=== PATIENT | female | born 1975 | race Caucasian/White ===

== ENCOUNTER → 2016-10-30 | Outpatient (CLI) | payer OTHER ==
[~2016-10-30] MED LIST: AMLO2.5T PO; ASPI-391 PO; BENZ1CAP90 PO; CALC-20 PO; CHOL1TAB42 PO; ESCI10TA17 PO; IPRA1AER2 INH; LEVO112T4 PO; MAGN200T3 PO; METO25TA3 PO; ONDA4TAB4 SL; OXYC1TAB3 PO; PANT40TA PO; PEDICHW53 PO; PRED20TA PO; PRVIN525 NEB; SUMA100T15 PO; SYMIN/8045 INH; TRIA37.5 PO
[2016-10-30 14:55] LABS: BASO % 0.3 %; BASO ABS # 0.02 K/uL (0-0.2); COMPLETE YES; HEMATOCRIT 40.6 % (37-47); IG% 0.2 %; LYMPH % 27.3 %; LYMPH ABS # 1.74 K/uL (1.2-3.4); MEAN CELL VOLUME 89.4 fL (80-100); MEAN CORPUSCULAR HGB CONC 31.3 g/dl (32-36); MONO % 4.9 %; NEUT % 40.3 %; PLATELET COUNT 213 K/uL (130-400); RED BLOOD COUNT 4.54 M/uL (4.2-5.4); WHITE BLOOD COUNT 6.37 K/uL (4.8-10.8)
[2016-10-30 15:11] LABS: ALT/SGPT 71 U/L (12-78); AST/SGOT 31 U/L (15-37); BLOOD UREA NITROGEN 13 mg/dl (7-18); BUN/CREATININE RATIO 18.9 (10-20); CARBON DIOXIDE 30 mmol/L (21-32); CHLORIDE 106 mmol/L (98-107); CREATININE 0.68 mg/dl (0.60-1.20); GLUCOSE 86 mg/dl (70-99); POTASSIUM 3.9 mmol/L (3.5-5.1); SODIUM 140 mmol/L (136-145)
[2016-10-30 15:14] LABS: ALB/GLOB RATIO 1.2 (0.9-2); ALKALINE PHOSPHATASE 90 U/L (45-117)
[2016-11-05 18:21] LABS: ALTERNARIA CLASS 0; ALTERNARIA IGE <0.10 KU/L; ASPERG FUMIG CLASS 0; ASPERG FUMIG IGE <0.10 KU/L; BAHIA GRASS ASM CLASS 0; BAHIA GRASS IGE <0.10 KU/L; BERMUDA GRASS CLASS 0; BERMUDA GRASS IGE <0.10 KU/L; BIRCH CLASS 0; BLACK LOCUST CLASS 0; BLACK LOCUST IGE <0.35 kU/L (<0.35); CAT DANDER CLASS 0; CLADOSPORIUM HER CLASS 0; CLADOSPORIUM HER IGE <0.10 KU/L; COCKROACH CLASS 0; D. FARINAE CLASS 0; D. FARINAE IGE <0.10 KU/L; D. PTERONYSSINUS CLASS 0; D. PTERONYSSINUS IGE <0.10 KU/L; DOG DANDER CLASS 0; ELM CLASS 0; ENGLISH PLAN CLASS 0; ENGLISH PLAN IGE <0.10 KU/L; JOHNSON CLASS 0; JOHNSON IGE <0.10 KU/L; JUNE (KENTUCKY BLUE) CLASS 0; JUNE IGE <0.10 KU/L; MAPLE (BOX ELDER) IGE <0.10 KU/L; MAPLE CLASS 0; MOUNTAIN CEDAR ASM CLASS 0; MOUNTAIN CEDAR IGE <0.10 KU/L; MUCOR CLASS 0; MUCOR IGE <0.10 KU/L; NETTLE CLASS 0; NETTLE IGE <0.10 KU/L; PENIC NOTATUM CLASS 0; PENIC NOTATUM IGE <0.10 KU/L; ROUGH PIGWEED CLASS 0; ROUGH PIGWEED IGE <0.10 KU/L; SHORT RAGWEED CLASS 0; SHORT RAGWEED IGE <0.10 KU/L; STEMPHY BOTRY CLASS 0; STEMPHY BOTRY IGE <0.10 KU/L; WHITE HICKORY ASM CLASS 0; WHITE HICKORY IGE <0.10 kU/L (<0.35); WHITE MULBERRY CLASS 0; WHITE MULBERRY IGE <0.10 KU/L
== END | disposition home or self-care (01) ==
LOC: C.LAB1850 13:00
PROVIDERS: ATTEND Internal Medicine Pulmonary Disease
DX: L50.9 Urticaria, unspecified (principal); L50.1 Idiopathic urticaria; L50.3 Dermatographic urticaria

== ENCOUNTER 2017-02-06 07:45 | Emergency (ER) | payer OTHER ==
[~2017-02-06] VITALS: Ht 152.4 cm; Wt 85.1 kg
[~2017-02-06 07:45] MED LIST changes: -AMLO2.5T PO; -ASPI-391 PO; -BENZ1CAP90 PO; -CALC-20 PO; -CHOL1TAB42 PO; -ESCI10TA17 PO; -IPRA1AER2 INH; -LEVO112T4 PO; -MAGN200T3 PO; -METO25TA3 PO; -PANT40TA PO; -PRED20TA PO; -PRVIN525 NEB; -SUMA100T15 PO; -SYMIN/8045 INH; -TRIA37.5 PO
[2017-02-06] MEDS ORDERED: ALBUT/IPRATROP 3MG/0.5MG NEB 3 ML VIAL INH STA ×2 (08:02→08:53)
[2017-02-06 08:18] VITALS: O2SAT 100
[2017-02-06 08:20] LABS: BASO % 0.1 %; BASO ABS # 0.01 K/uL (0-0.2); COMPLETE YES; EOS % 1.3 %; HEMATOCRIT 41.8 % (37-47); IG% 0.3 %; LYMPH ABS # 0.83 K/uL (1.2-3.4); MEAN CELL VOLUME 88.9 fL (80-100); MEAN CORPUSCULAR HEMOGLOBIN 27.7 pg (25-34); MEAN CORPUSCULAR HGB CONC 31.1 g/dl (32-36); MEAN PLATELET VOLUME 10.2 fL (7.4-10.4); MONO % 8.2 %; NEUT % 78.1 %; PLATELET COUNT 214 K/uL (130-400); WHITE BLOOD COUNT 6.93 K/uL (4.8-10.8)
[2017-02-06] MEDS ORDERED: TRIA37.5 PO (08:33)
[2017-02-06] MEDS ORDERED: PANT40TA PO (08:33)
[2017-02-06] MEDS ORDERED: CALC-20 PO (08:33)
[2017-02-06] MEDS ORDERED: LEVO112T4 PO (08:33)
[2017-02-06] MEDS ORDERED: SYMIN/8045 INH (08:33)
[2017-02-06] MEDS ORDERED: ASPI-391 PO (08:33)
[2017-02-06] MEDS ORDERED: ESCI10TA17 PO (08:33)
[2017-02-06] MEDS ORDERED: AMLO2.5T PO (08:33)
[2017-02-06 08:34] LABS: ALT/SGPT 38 U/L (12-78); BLOOD UREA NITROGEN 13 mg/dl (7-18); BUN/CREATININE RATIO 16.4 (10-20); CALCIUM 8.6 mg/dl (8.5-10.1); CARBON DIOXIDE 26 mmol/L (21-32); CHLORIDE 108 mmol/L (98-107); CREATININE 0.81 mg/dl (0.60-1.20); GLUCOSE 121 mg/dl (70-99); POTASSIUM 3.5 mmol/L (3.5-5.1); SODIUM 140 mmol/L (136-145)
[2017-02-06 08:39] LABS: ALB/GLOB RATIO 1.1 (0.9-2); ALKALINE PHOSPHATASE 84 U/L (45-117); AST/SGOT 16 U/L (15-37)
[2017-02-06] MEDS ORDERED: PRED20TA PO ×2 (08:41→09:30)
[2017-02-06] MEDS ORDERED: SUMA100T15 PO (08:41)
[2017-02-06] MEDS ORDERED: METO25TA3 PO (08:41)
[2017-02-06] MEDS ORDERED: MAGN200T3 PO (08:41)
[2017-02-06] MEDS ORDERED: CHOL1TAB42 PO (08:41)
[2017-02-06] MEDS ORDERED: PRVIN525 NEB (08:41)
[2017-02-06 08:45] VITALS: TEMP 36.4; Ht 152.4 cm; Wt 85.1 kg
--- NOTE | 2017-02-06 08:48 | DIAGNOSTIC IMAGING REPORT ---
CHEST 2 VIEWS ROUTINE HISTORY: dyspnea, wheezing COMPARISON: Chest 08/27/2013. FINDINGS: The lungs are clear. Cardiac silhouette is normal in size. No pleural effusions. No pneumothorax. IMPRESSION: No acute process. Electronically signed by: Ozzie Ruiz M.D. 02/06/2017 8:46 AM Dictated Date/Time: 02/06/2017 8:42 AM
[2017-02-06] MEDS ORDERED: METHYLPREDNISOLONE 125 MG VIAL IV STA (08:53)
--- NOTE | 2017-02-06 09:00 | EMERGENCY ROOM VISIT NOTE ---
History First contact with patient: 07:56 Chief Complaint: RESPIRATORY PROBLEMS Stated Complaint: CHEST PAINS - SHORTNESS OF BREATH (CARDIAC HX) Nursing Triage Summary: I have had a cough, I feel like I cant catch my breath. symptoms started about 330 this morning. I have a heart condition as well no chest pain at this time History of Present Illness The patient is a 42 year old female who presents to the Emergency Room with complaints of difficulty breathing and cough. The patient states she awoke at approximately 3:30 this morning with difficulty breathing. The patient states over the past 3 months, she has been having a cough on and off. The patient was seen by her physician, who did order a chest x-ray which she states was fine. The patient states she has been slightly nauseated and had a headache, but denies fever, chills, vomiting, or a history of lung problems including asthma or COPD. The patient states she has not recently been ill. She denies chest pain, palpitations, or other associated symptoms. The patient states she does feel that she has wheezing, and she feels that her lungs are "tight". The patient does have small children at home, and does work in a daycare. She denies recent contact with known ill people, however she states it is very possible due to her job. The patient does have PFO. Review of Systems A complete 10 point review of systems was reviewed with the patient with pertinent positives and negatives as per history of present illness. All else were negative. Past Medical/Surgical History Medical Problems: (1) ACUTE APPENDICITIS NOS (2) Appendectomy (3) Mitral valve regurgitation (4) TUBAL LIGATION STATUS Surgical Problems: (1) H/O knee surgery Family History Diabetes mellitus FH: cancer FH: heart disease Hypertension Social History Smoking Status: Never Smoker Smokeless Tobacco Use: No Alcohol Use: none Drug Use: none Marital Status: Housing Status: lives with family Occupation Status: unemployed Current/Historical Medications Scheduled Cholecalciferol (Vitamin D), 5,000 UNITS PO DAILY Ipratropium-Albuterol (Combivent Respimat), 1 PUFFS INH Q4-6H Magnesium (Magnesium), 200 MG PO DAILY Metoprolol Succinate (Toprol Xl), 25 MG PO DAILY Prednisone (Prednisone), 0 PO DAILY Scheduled PRN Albuterol Sulf (Albuterol Sulfate), 2.5 MG NEB UD PRN for SOB/Wheezing Benzonatate (Tessalon Perles), 200 MG PO TID PRN for Cough Prednisone (Prednisone), 20-40 MG PO UD PRN for Itching Sumatriptan Succinate (Imitrex), 100 MG PO UD PRN for Migraine Physical Exam Vital Signs Date Time Temp Pulse Resp B/P (MAP) Pulse Ox O2 Delivery O2 Flow Rate FiO2 02/06/17 09:50 121 20 137/82 93 02/06/17 09:10 93 20 130/86 100 Nebulizer 02/06/17 08:45 36.4 89 18 133/87 100 Room Air 02/06/17 08:18 100 02/06/17 07:59 95 Room Air 02/06/17 07:59 89 02/06/17 07:50 99 18 133/87 97 Room Air Physical Exam VITALS: Vitals are noted on the nurse's note and reviewed by myself. Vital signs stable. GENERAL: This is a 42-year-old female, in no acute distress, nondiaphoretic, well-developed well-nourished. SKIN: The skin was without rashes, erythema, edema, or bruising. There is no tenting of the skin. Capillary reflex less than 2 seconds. HEAD: Normocephalic atraumatic. EARS: External auditory canals clear, tympanic membranes pearly mahmood without erythema or effusion bilaterally. EYES: Pupils equal round and reactive to light and accommodation. Conjunctivae without injection, sclerae without icterus. Extraocular movements intact. NOSE: Patent, turbinates without inflammation or discharge. No sinus tenderness. MOUTH: Mucous membranes moist. Tonsils are not enlarged. Pharynx without erythema or exudate. Uvula midline. Airway patent. Tongue does not deviate. NECK: Supple without nuchal rigidity. No lymphadenopathy. No thyromegaly. Cervical spine is nontender. No JVD. HEART: Regular rate and rhythm without murmurs gallops or rubs. LUNGS: Wheezing noted throughout all lung shay, worse on exhalation. No Rales or rhonchi noted on auscultation. No dullness to percussion. No retractions or accessory muscle use. MUSCULOSKELETAL: No muscle atrophy, erythema, or edema noted. Full range of motion without joint tenderness in all extremities. No tenderness to palpation. Normal gait. Strength 5/5 throughout. NEURO: Patient was alert and oriented to person place and time. Normal sensation to light and sharp touch. Deep tendon reflexes 2+ throughout. No focal neurological deficits. Medical Decision & Procedures ER Provider Diagnostic Interpretation: CXR: FINDINGS: The lungs are clear. Cardiac silhouette is normal in size. No pleural effusions. No pneumothorax. IMPRESSION: No acute process. LABS: CBC was without leukocytosis, anemia, thrombocytopenia. CMP showed no electrolyte abnormalities, liver and renal function normal. Troponin was negative. CK was negative. Laboratory Results 02/06/17 08:00 Red Blood Count 4.70, Mean Corpuscular Volume 88.9, Mean Corpuscular Hemoglobin 27.7, Mean Corpuscular Hemoglobin Concent 31.1, Mean Platelet Volume 10.2, Neutrophils (%) (Auto) 78.1, Lymphocytes (%) (Auto) 12.0, Monocytes (%) (Auto) 8.2, Eosinophils (%) (Auto) 1.3, Basophils (%) (Auto) 0.1, Neutrophils # (Auto) 5.41, Lymphocytes # (Auto) 0.83, Monocytes # (Auto) 0.57, Eosinophils # (Auto) 0.09, Basophils # (Auto) 0.01 02/06/17 08:00 Test 02/06/17 08:00 02/06/17 08:26 White Blood Count 6.93 K/uL (4.8-10.8) Red Blood Count 4.70 M/uL (4.2-5.4) Hemoglobin 13.0 g/dL (12.0-16.0) Hematocrit 41.8 % (37-47) Mean Corpuscular Volume 88.9 fL (80-100) Mean Corpuscular Hemoglobin 27.7 pg (25-34) Mean Corpuscular Hemoglobin Concent 31.1 g/dl (32-36) Platelet Count 214 K/uL (130-400) Mean Platelet Volume 10.2 fL (7.4-10.4) Neutrophils (%) (Auto) 78.1 % Lymphocytes (%) (Auto) 12.0 % Monocytes (%) (Auto) 8.2 % Eosinophils (%) (Auto) 1.3 % Basophils (%) (Auto) 0.1 % Neutrophils # (Auto) 5.41 K/uL (1.4-6.5) Lymphocytes # (Auto) 0.83 K/uL (1.2-3.4) Monocytes # (Auto) 0.57 K/uL (0.11-0.59) Eosinophils # (Auto) 0.09 K/uL (0-0.5) Basophils # (Auto) 0.01 K/uL (0-0.2) RDW Standard Deviation 46.3 fL (36.4-46.3) RDW Coefficient of Variation 14.2 % (11.5-14.5) Immature Granulocyte % (Auto) 0.3 % Immature Granulocyte # (Auto) 0.02 K/uL (0.00-0.02) Anion Gap 6.0 mmol/L (3-11) Est Creatinine Clear Calc Drug Dose 89.4 ml/min Estimated GFR () 105.3 Estimated GFR (Non- 90.8 BUN/Creatinine Ratio 16.4 (10-20) Calcium Level 8.6 mg/dl (8.5-10.1) Total Bilirubin 0.7 mg/dl (0.2-1) Aspartate Amino Transf (AST/SGOT) 16 U/L (15-37) Alanine Aminotransferase (ALT/SGPT) 38 U/L (12-78) Alkaline Phosphatase 84 U/L (45-117) Total Creatine Kinase 76 U/L (26-192) Creatine Kinase MB 0.6 ng/ml (0.5-3.6) Troponin I < 0.015 ng/ml (0-0.045) Total Protein 7.4 gm/dl (6.4-8.2) Albumin 3.9 gm/dl (3.4-5.0) Globulin 3.5 gm/dl (2.5-4.0) Albumin/Globulin Ratio 1.1 (0.9-2) Creatine Kinase MB Ratio (0-3.0) Medications Administered Medications (Trade) Dose Ordered Sig/Shahana Route Start Time Stop Time Status Last Admin Dose Admin Albuterol/ Ipratropium (Duoneb) 3 ml NOW STAT INH 02/06/17 08:02 02/06/17 08:03 DC 02/06/17 08:17 3 ML Methylprednisolone Sodium Succinate (Solu-Medrol IV) 125 mg NOW STAT IV 02/06/17 08:53 02/06/17 08:55 DC 8/24/17 09:08 125 MG Albuterol/ Ipratropium (Duoneb) 3 ml NOW STAT INH 02/06/17 08:53 02/06/17 08:55 DC 02/06/17 09:08 3 ML Medical Decision The patient was seen and evaluated as above. She was immediately given a DuoNeb treatment. The patient did note significant improvement in her symptoms with this medication. On reevaluation, the patient continued to have very diffuse, significant wheezing, however this was improved from her previous examination. The patient was given a repeat DuoNeb treatment, and 125 mg Solu-Medrol via IV. On reevaluation, the patient states she continues to feel significantly better, her chest feels significantly less tight, and she has been wheezing much less. The patient's lungs do reveal wheezing, however this has improved since her previous examination. I discussed discharge instructions with the patient, given her lack of lung problems including asthma or COPD, I suspect viral etiology of illness. Patient will be placed on prednisone and given medication for her coughing, as well as a Combivent inhaler for bronchitis. Discharge instructions were discussed with the patient about that, and she was discharged home in good condition. Throughout the course of the patient's care, I did consider etiologies including : bronchitis, pneumonia, acute coronary syndrome, heart disease, failure, upper respiratory infection, acute tracheobronchitis, malignancy, and others. Medication Reconcilliation Current Medication List: was personally reviewed by me Blood Pressure Screening Patient's blood pressure: Normal blood pressure Impression Primary Impression: Acute bronchitis Departure Information Dispostion Home / Self-Care Condition GOOD Prescriptions Ipratropium-Albuterol (COMBIVENT RESPIMAT) 1 Aer Aer 1 PUFFS INH Q4-6H, #1 INHALER Prov: Rita Barboza PA-C 02/06/17 Benzonatate (Tessalon Perles) 200 Mg Cap 200 MG PO TID Y for Cough, #30 CAP Prov: Rita Barboza PA-C 02/06/17 Prednisone (Prednisone) 20 Mg Tab 0 PO DAILY, #18 TAB 3 DAILY FOR 3 DAYS, THEN 2 DAILY FOR 3 DAYS, THEN 1 DAILY FOR 3 DAYS. Prov: Rita Barboza PA-C 02/06/17 Referrals Rodriguez Sutherland M.D. (PCP) Forms WORK / SCHOOL INSTRUCTIONS, HOME CARE DOCUMENTATION FORM, IMPORTANT VISIT INFORMATION Patient Instructions Bronchitis Acute, My [facility] Additional Instructions You were seen and treated in the emergency department today for acute bronchitis. Chest x-ray did rule out pneumonia. You have been prescribed prednisone. This is a steroid which will help decrease your inflammation and help with breathing. Take the medicine as prescribed. Take the ENTIRE 9 day course of the steroids. You may take benzonatate, 1 capsule 3 times per day as needed for coughing. Use the Combivent inhaler every 4-6 hours over the next 3-4 days. Then use it as needed for breathing difficulty. You may also use OTC cold medication. If you began experiencing worsening breathing difficulty, cough, chest congestion, or other concerning symptoms, return to the emergency department immediately for further evaluation. Please follow up in 1-2 days with your PCP for recheck of your lungs. Due to your symptoms for the past 3 months, I do recommend that you see a embroiderer. Please discuss with your PCP and appropriate embroiderer for you. Problem Qualifiers Primary Impression: Acute bronchitis Bronchitis organism: unspecified organism Qualified Codes: J20.9 - Acute bronchitis, unspecified
[2017-02-06] MEDS ORDERED: BENZ1CAP90 PO (09:30)
[2017-02-06] MEDS ORDERED: IPRA1AER2 INH (09:30)
[2017-02-06 09:50] VITALS: BP 137/82; PULSE 121; O2SAT 93
== END 2017-02-06 09:51 | disposition home or self-care (01) ==
LOC: C.EDB 07:46
DX: J20.9 Acute bronchitis, unspecified (principal); Q21.1 Atrial septal defect; I34.0 Nonrheumatic mitral (valve) insufficiency; Z98.51 Tubal ligation status; Z83.3 Family history of diabetes mellitus; Z82.49 Family history of ischemic heart disease and other diseases of the circulatory system; Z79.899 Other long term (current) drug therapy

== ENCOUNTER 2021-12-02 14:43 | Observation (INO) ==
[2021-12-02] MEDS ORDERED: diphenhydrAMINE 50 MG/ML VIAL IV STA (15:34)
[2021-12-02] MEDS ORDERED: KETOROLAC TROMETHAMINE 15 MG/ML VIAL IV ONE (15:34)
[2021-12-02] MEDS ORDERED: PROCHLORPERAZINE 2 ML IV ONE (15:34)
[2021-12-02] MEDS ORDERED: SODIUM CHLORIDE 0.9% 1000ML 1,000 ML IV ONE (15:35)
--- NOTE | 2021-12-02 15:39 | Emergency Department Note ---
Impression & Plan Sepsis, Pyelonephritis ED Provider Note NAME: AMY LI AGE: 46 SEX: F : 1975 ARRIVES VIA: Walk-In INFORMANT: Patient ED PROVIDER(S): Albaro Hdez DO CHIEF COMPLAINT: COVID + and migraine HPI: Patient is a 46-year-old female with past medical history of migraines, PFO, atrial septal aneurysm, symptomatic PVCs presents to the ER for headache. Patient notes her symptoms started on Friday. She is COVID-positive. Denies any belly pain or vomiting but admits to nausea. Headache is diffuse throughout the whole head. She describes as a pounding sharp stabbing headache. No neck pain. No fevers. This is her second round of COVID. She admits to a history of VT but denies any ICD placement. ROS: See above HPI for pertinent positives & negatives. A total of 10 systems reviewed and were otherwise negative. PAST MEDICAL HISTORY:See Below PAST SURGICAL HISTORY:See Below FAMILY HISTORY:See Below SOCIAL HISTORY:See Below HOME MEDICATIONS:See Below ALLERGIES:See Below VITALS:See Below PHYSICAL EXAMINATION: GENERAL: Sitting up in bed, alert, well appearing, well nourished, no distress, non-toxic EYE EXAM: normal conjunctiva. PERRL and EOM's intact. OROPHARYNX: no exudate, no erythema, lips, buccal mucosa, and tongue normal and mucous membranes are moist NECK: supple, no nuchal rigidity, no adenopathy, non-tender LUNGS: Clear to auscultation. Normal chest wall mechanics HEART: no murmurs, S1 normal and S2 normal ABDOMEN: abdomen soft, non-tender, normo-active bowel sounds, no masses, no rebound or guarding. BACK: Back is symmetrical on inspection and there is no deformity, no midline tenderness, no CVA tenderness. SKIN: no rashes and no bruising UPPER EXTREMITIES: upper extremities are grossly normal. LOWER EXTREMITIES: No pitting edema. NEURO EXAM: Normal sensorium, cranial nerves II-XII intact, normal speech, no weakness of arms, no weakness of legs. No drift. Finger to nose intact. Gross sensation intact. MEDICAL DECISION MAKING: Patient is a 46-year-old female who presents the ER with a past medical history of migraines, PFO, atrial septal aneurysm and symptomatic PVCs. She notes that she has a history of VT however review of the chart she followed with Dr. Zarco and had PVCs. Discussed this with her at bedside and she believes that it was likely PVCs instead of VT. She has a stress test which was negative in 2020. He was established with records obtained. Labs show mild leukopenia 4000. No significant anemia. BMP with mild hypokalemia 3.2. LFTs bilirubin and troponin was negative. UA was contaminated. Patient is COVID-positive. Chest x-ray was unremarkable. It was negative. EKG showed new T wave inversion in counseling patient was discussed with the hospitalist in light of the new T wave changes, chest pain/palpitations. Triage Nursing notes reviewed. Limited review of prior medical records performed Vital Signs: reviewed and remarkable for no significant abnormalities Differential diagnosis: Differential Diagnosis includes but is not limited to headache, tension headache, cluster headache, migraine, subarachnoid hemorrhage, meningitis, mass, central venous thrombus, concussion, trauma and epidural/subdural hemorrhage. ER treatment provided: See below Diagnostics interpreted by me: ECG: Sinus rhythm rate of [address] depressions in the inferior leads T wave inversion V1 through V3 ST depressions in V3 QTC 471 T wave inversions are new from previous. Cardiac Monitoring: An order was placed for continuous cardiac monitoring. The monitor shows a rate of 80 with sinus rhythm. Laboratory studies: As stated above and show below. Imaging studies: Head was negative Portable AP upright 1 view of the chest was unremarkable Consultation(s): Discussed with Chandni from [facility] service Procedures: none Critical Care: None Past Med/Surg History Medical History Mitral valve regurgitation Surgical History H/O knee surgery Hx of appendectomy Tubal ligation status Family History Other Cancer Heart disease Hypertension Social History Smoking Status: Never smoker Preferred Language: Sami Feels Safe at Home: Yes Allergies Allergies Allergy/AdvReac Type Severity Reaction Status Date / Time No Known Allergies Allergy Verified 12/02/21 19:40 Home Meds Home Medications Medication Instructions Recorded Confirmed mometasone-formoterol HFA 200 2 puff INHALATION BID 04/12/20 12/02/21 mcg-5 mcg/actuation aerosol inhaler (Dulera) multivit-iron 18 mg-folic acid 400 1 tab PO DAILY 04/12/20 12/02/21 mcg-calcium 500 mg-minerals tablet (Women's One Daily) acetaminophen 500 mg tablet 1,000 mg PO Q6H PRN 12/02/21 12/02/21 (Tylenol Extra Strength) ibuprofen 200 mg tablet 400 mg PO Q6H PRN 12/02/21 12/02/21 Results & Data (ED) Vital Signs Vital Signs - 24 hr 12/02/21 14:51 12/02/21 16:49 12/02/21 18:36 Temperature 36.3 C L Temperature Source Temporal Artery Scan Pulse Rate 97 H Pulse Rate [Right Finger] 83 68 Pulse Rhythm Regular Pulse Rhythm [Right Finger] Regular Pulse Strength Normal Pulse Strength [Right Finger] Normal Respiratory Rate 20 18 16 Respiratory Effort / Characteristics Non-Labored Spontaneous Non-Labored Spontaneous Non-Labored Spontaneous Respiratory Depth Normal Normal Normal Blood Pressure 133/89 Blood Pressure [Left Arm] 119/76 131/83 Blood Pressure Mean 103 Blood Pressure Mean [Left Arm] 90 99 Blood Pressure Position Sitting Blood Pressure Position [Left Arm] Lying Pulse Oximetry 99 100 100 Oxygen Delivery Method Room Air Room Air Room Air Sepsis Recent Fever Within 48 Hours No Sepsis New/Unexplained Change in Mental Status No Sepsis Action Taken by Nursing No Action Required 12/02/21 18:37 12/02/21 19:29 Temperature Temperature Source Pulse Rate 68 Pulse Rate [Right Finger] 88 Pulse Rhythm Regular Pulse Rhythm [Right Finger] Pulse Strength Pulse Strength [Right Finger] Respiratory Rate 17 18 Respiratory Effort / Characteristics Respiratory Depth Blood Pressure Blood Pressure [Left Arm] 135/83 Blood Pressure Mean Blood Pressure Mean [Left Arm] 100 Blood Pressure Position Blood Pressure Position [Left Arm] Sitting Pulse Oximetry 100 100 Oxygen Delivery Method Room Air Sepsis Recent Fever Within 48 Hours Sepsis New/Unexplained Change in Mental Status Sepsis Action Taken by Nursing Laboratory Data Result diagrams: 12/02/21 16:00 12/02/21 17:35 Lab Results 12/02/21 12/02/21 12/02/21 Range/Units 16:00 16:00 16:00 WBC 4.28 L (4.8-10.8) K/uL RBC 4.74 (4.2-5.4) M/uL Hgb 13.5 (12.0-16.0) g/dL Hct 41.3 (37-47) % MCV 87.1 (80-100) fL MCH 28.5 (25-34) pg MCHC 32.7 (32-36) g/dL RDW Std Deviation 48.0 H (36.4-46.3) fL RDW Coeff of Sveta 14.9 H (11.5-14.5) % Plt Count 219 (130-400) K/uL MPV 11.0 H (7.4-10.4) fL Immature Gran % (Auto) 0.2 % Neut % (Auto) 55.7 % Lymph % (Auto) 31.3 % [place] % (Auto) 12.1 % Eos % (Auto) 0.5 % Baso % (Auto) 0.2 % Neut # (Auto) 2.38 (1.4-6.5) K/uL Lymph # (Auto) 1.34 (1.2-3.4) K/uL [place] # (Auto) 0.52 (0.11-0.59) K/uL Eos # (Auto) 0.02 (0-0.5) K/uL Baso # (Auto) 0.01 (0-0.2) K/uL Immature Gran # (Auto) 0.01 (0.00-0.02) K/uL Sodium 139 (136-145) mmol/L Potassium (3.5-5.1) mmol/L Chloride 104 (98-107) mmol/L Carbon Dioxide 27 (21-32) mmol/L Anion Gap 8 (3-11) BUN 11 (6-23) mg/dl Creatinine 0.70 (0.6-1.2) mg/dl Est Cr Clr Drug Dosing 94.9 ml/min Est GFR ( Amer) 122.1 ml/min Est GFR (Non-Af Amer) 105.4 ml/min BUN/Creatinine Ratio 15.7 (10-20) Glucose 83 (70-99(Fasting)) mg/dl Calcium 9.2 (8.5-10.1) mg/dl Total Bilirubin 1.0 (0.2-1.0) mg/dl AST (13-39) U/L ALT 32 (7-52) U/L Alkaline Phosphatase 50 (34-104) U/L Troponin I High Sens 5.7 (0-14) pg/ml Total Protein 7.6 (6.0-8.3) gm/dl Albumin 4.5 (3.4-5.0) gm/dl Globulin 3.1 (2.5-4.0) gm/dl Albumin/Globulin Ratio 1.5 (0.9-2) Urine Color [place] Urine Appearance Cloudy A (Clear) Urine pH 6.0 (4.5-7.5) Ur Specific [place] 1.027 (1.000-1.030) Urine Protein 2+ H (Negative) Urine Glucose (UA) Negative (Negative) Urine Ketones 3+ H (Negative) Urine Blood 3+ H (Negative) Urine Nitrite Negative (Negative) Urine Bilirubin 1+ H (Negative) Urine Urobilinogen Negative (Negative) Ur Leukocyte Esterase 1+ H (Negative) Urine WBC (Auto) 5-10 H (0-5) /hpf Urine RBC (Auto) >30 H (0-4) /hpf U Hyaline Cast (Auto) 1-5 (0-5) /lpf U Epithel Cells (Auto) >30 H (0-5) /lpf Urine Bacteria (Auto) 1+ H (Negative) SARS-CoV-2, RNA, NAAT (NEGATIVE) 12/02/21 12/02/21 12/02/21 Range/Units 17:35 19:33 Unknown WBC (4.8-10.8) K/uL RBC (4.2-5.4) M/uL Hgb (12.0-16.0) g/dL Hct (37-47) % MCV (80-100) fL MCH (25-34) pg MCHC (32-36) g/dL RDW Std Deviation (36.4-46.3) fL RDW Coeff of Sveta (11.5-14.5) % Plt Count (130-400) K/uL MPV (7.4-10.4) fL Immature Gran % (Auto) % Neut % (Auto) % Lymph % (Auto) % [place] % (Auto) % Eos % (Auto) % Baso % (Auto) % Neut # (Auto) (1.4-6.5) K/uL Lymph # (Auto) (1.2-3.4) K/uL [place] # (Auto) (0.11-0.59) K/uL Eos # (Auto) (0-0.5) K/uL Baso # (Auto) (0-0.2) K/uL Immature Gran # (Auto) (0.00-0.02) K/uL Sodium (136-145) mmol/L Potassium 3.2 L (3.5-5.1) mmol/L Chloride (98-107) mmol/L Carbon Dioxide (21-32) mmol/L Anion Gap (3-11) BUN (6-23) mg/dl Creatinine (0.6-1.2) mg/dl Est Cr Clr Drug Dosing ml/min Est GFR ( Amer) ml/min Est GFR (Non-Af Amer) ml/min BUN/Creatinine Ratio (10-20) Glucose (70-99(Fasting)) mg/dl Calcium (8.5-10.1) mg/dl Total Bilirubin (0.2-1.0) mg/dl AST 16 (13-39) U/L ALT (7-52) U/L Alkaline Phosphatase (34-104) U/L Troponin I High Sens 6.3 (0-14) pg/ml Total Protein (6.0-8.3) gm/dl Albumin (3.4-5.0) gm/dl Globulin (2.5-4.0) gm/dl Albumin/Globulin Ratio (0.9-2) Urine Color Urine Appearance (Clear) Urine pH (4.5-7.5) Ur Specific [place] (1.000-1.030) Urine Protein (Negative) Urine Glucose (UA) (Negative) Urine Ketones (Negative) Urine Blood (Negative) Urine Nitrite (Negative) Urine Bilirubin (Negative) Urine Urobilinogen (Negative) Ur Leukocyte Esterase (Negative) Urine WBC (Auto) (0-5) /hpf Urine RBC (Auto) (0-4) /hpf U Hyaline Cast (Auto) (0-5) /lpf U Epithel Cells (Auto) (0-5) /lpf Urine Bacteria (Auto) (Negative) SARS-CoV-2, RNA, NAAT POSITIVE A* (NEGATIVE) Administered Medications Discontinued Medications Diphenhydramine HCl (Diphenhydramine 50 Mg/Ml Vial) 50 mg IV NOW STA Stop: 12/02/21 15:35 Last Admin: 12/02/21 16:12 Dose: 50 mg Documented by: [id number] Prochlorperazine (Compazine) 2 mls @ 1 mls/min IV ONE ONE Stop: 12/02/21 15:35 Last Admin: 12/02/21 16:11 Dose: 1 mls/min Documented by: [id number] Sodium Chloride (Nss 1000ml) 1,000 mls @ 999 mls/hr IV .Q1H1M ONE Stop: 12/02/21 16:35 Last Infusion: 12/02/21 17:27 Dose: 0 mls/hr Documented by: [id number] Admin: 12/02/21 16:11 Dose: 999 mls/hr Documented by: [id number] Ketorolac Tromethamine (Ketorolac Tromethamine 15 Mg/Ml Vial) 15 mg IV NOW ONE Stop: 12/02/21 15:35 Last Admin: 12/02/21 16:11 Dose: 15 mg Documented by: [id number] Ondansetron HCl (Ondansetron Inj 2 Mg/Ml 2 Ml Vial) 4 mg IV NOW STA Stop: 12/02/21 16:08 Last Admin: 12/02/21 16:11 Dose: 4 mg Documented by: [id number] Imaging Data Radiologist's Impression: Head CT 12/02/21 15:33 CT head/brain wo con CLINICAL HISTORY: marmolejo COMPARISON STUDY: 04/12/2020 CT DOSE: 537.48 mGy.cm TECHNIQUE: Standard CT of the Brain was performed without IV contrast. A dose lowering technique was utilized adhering to the principles of ALARA. FINDINGS: Extraaxial space: There is no evidence for subdural hematoma. There are no extra-axial fluid collections. Ventricles and cisterns: The ventricles are normal in size and configuration. There is no evidence for midline shift or mass effect. Parenchyma: There is no subarachnoid or intraparenchymal hemorrhage. There is no evidence for an acute infarct or cerebral edema. There is homogeneous attenuation of the brain parenchyma. There are no gross mass lesions. Osseous structures: There is no evidence for an acute fracture. The visualized paranasal sinuses are clear. The mastoid air cells are clear bilaterally. Soft tissues: There is no evidence for focal soft tissue swelling. IMPRESSION: 1. No acute intracerebral pathology. ACT 112: Negative or not required by law. Electronically signed by: Jose Shepherd M.D. 12/02/2021 5:04 PM Chest X-Ray 12/02/21 15:35 XR chest 1V portable CLINICAL HISTORY: cough. COMPARISON STUDY: 04/12/2020 TECHNIQUE: 1 view of the chest FINDINGS: Single frontal view of the chest demonstrates the cardiomediastinal silhouette to be within normal limits. The lungs are clear of alveolar opacities. There is no evidence for pleural effusion. There is no evidence for vascular congestion. There is no acute osseous pathology. IMPRESSION: 1. No acute cardiopulmonary disease. ACT 112: Negative or not required by law. Electronically signed by: Jose Shepherd M.D. 12/02/2021 5:03 PM Discharge Plan Visit Data Chief Complaint: Headache Stated Complaint: HEADACHE, HEART PALPITATION, COVID + ED Provider: Albaro Hdez Discharge Problem: Sepsis, Pyelonephritis Forms Stand Alone Forms: [facility] [employer] Prescriptions Prescriptions: No Action Dulera 200-5 mcg/actuation HFA aerosol inhaler 2 puff INHALATION BID RF: 0 Women's One Daily 18 mg iron-400 mcg-500 mg Ca Tablet 1 tab PO DAILY RF: 0 acetaminophen [Tylenol Extra Strength] 500 mg Tablet 1,000 mg PO Q6H PRN (Reason: headache/pain) RF: 0 ibuprofen 200 mg Tablet 400 mg PO Q6H PRN (Reason: HEADACHE/PAIN) RF: 0 Referrals Referrals: Daniel Acosta MD [Primary Care Provider] - Discharge Problem: Sepsis Qualifiers: Sepsis type: sepsis due to unspecified organism Sepsis acute organ dysfunction status: unspecified Qualified Code(s): A41.9 - Sepsis, unspecified organism
[2021-12-02] MEDS ORDERED: ONDANSETRON INJ 2 MG/ML 2 ML VIAL IV STA (16:07)
[2021-12-02 16:27] LABS: Appearance Urine Cloudy (Clear); Bacteria Urine Automated 1+ (Negative); Blood Urine 3+ (Negative); Color Urine Orange; Epithelial Cell Urine Auto >30 /lpf (0-5); Glucose Urine UA Negative (Negative); Ketones Urine 3+ (Negative); Leukocyte Esterase Urine 1+ (Negative); Nitrite Urine Negative (Negative); Protein Urine 2+ (Negative); RBC Urine Automated >30 /hpf (0-4); Specific Gravity Urine 1.027 (1.000-1.030); Urobilinogen Urine Negative (Negative)
[2021-12-02 16:28] LABS: Basophils # (auto) 0.01 K/uL (0-0.2); Basophils % (auto) 0.2 %; Eosinophils # (auto) 0.02 K/uL (0-0.5); Eosinophils % (auto) 0.5 %; Hematocrit (blood only) 41.3 % (37-47); Hemoglobin 13.5 g/dL (12.0-16.0); Immature Granulocytes # (auto) 0.01 K/uL (0.00-0.02); Immature Granulocytes % (auto) 0.2 %; Lymphocytes # (auto) 1.34 K/uL (1.2-3.4); Lymphocytes % (auto) 31.3 %; Mean Corpuscular Hemoglobin 28.5 pg (25-34); Mean Corpuscular Hgb Conc 32.7 g/dL (32-36); Mean Corpuscular Volume 87.1 fL (80-100); Monocytes # (auto) 0.52 K/uL (0.11-0.59); Monocytes % (auto) 12.1 %; Neutrophils # (auto) 2.38 K/uL (1.4-6.5); Neutrophils % (auto) 55.7 %; Platelet Count 219 K/uL (130-400); RDW Coefficient of Variation 14.9 % (11.5-14.5); Red Blood Count 4.74 M/uL (4.2-5.4); White Blood Count 4.28 K/uL (4.8-10.8)
[2021-12-02 16:34] LABS: Bilirubin Urine 1+ (Negative)
[2021-12-02 16:58] LABS: Albumin Globulin Ratio 1.5 (0.9-2); Albumin Level 4.5 gm/dl (3.4-5.0); BUN Creatinine Ratio 15.7 (10-20); Calcium 9.2 mg/dl (8.5-10.1); Creatinine Clr Calc Pharmacy 94.9 ml/min; Est GFR (African American) 122.1 ml/min; Est GFR (Non-African American) 105.4 ml/min; Globulin 3.1 gm/dl (2.5-4.0); Total Protein 7.6 gm/dl (6.0-8.3); Troponin I High Sensitivity 5.7 pg/ml (0-14)
--- NOTE | 2021-12-02 17:04 | XRay Report ---
XR chest 1V portable CLINICAL HISTORY: cough. COMPARISON STUDY: 04/12/2020 TECHNIQUE: 1 view of the chest FINDINGS: Single frontal view of the chest demonstrates the cardiomediastinal silhouette to be within normal li mits. The lungs are clear of alveolar opacities. There is no evidence for pleural effusion. There is no evidence for vascular congestion. There is no acute osseous pathology. IMPRESSION: 1. No acute cardiopulmonary disease. ACT 112: Negative or not required by law. Electronically signed by: Jose Shepherd M.D. 12/02/2021 5:03 PM
--- NOTE | 2021-12-02 17:05 | CT Scan Report ---
CT head/brain wo con CLINICAL HISTORY: marmolejo COMPARISON STUDY: 04/12/2020 CT DOSE: 537.48 mGy.cm TECHNIQUE: Standard CT of the Brain was performed without IV contrast. A dose lowering technique was utilized adhering to the principles of ALARA. FINDINGS: Extraaxial space: There is no evidence for subdural hematoma. There are no extra-axial fluid collecti ons. Ventricles and cisterns: The ventricles are normal in size and configuration. There is no evidence fo r midline shift or mass effect. Parenchyma: There is no subarachnoid or intraparenchymal hemorrhage. There is no evidence for an acut e infarct or cerebral edema. There is homogeneous attenuation of the brain parenchyma. There are no g ross mass lesions. Osseous structures: There is no evidence for an acute fracture. The visualized paranasal sinuses are clear. The mastoid air cells are clear bilaterally. Soft tissues: There is no evidence for focal soft tissue swelling. IMPRESSION: 1. No acute intracerebral pathology. ACT 112: Negative or not required by law. Electronically signed by: Jose Shepherd M.D. 12/02/2021 5:04 PM
[2021-12-02 18:19] LABS: Potassium 3.2 mmol/L (3.5-5.1)
--- NOTE | 2021-12-02 19:16 | History & Physical Report ---
Date of Service December 02, 2021 Assessment & Plan (1) Chest pain: Plan: - Admit to tele for observation for r/o - Trend cardiac biomarkers, initial set was negative, will check again now, then Q6H x 2 more sets - EKG reviewed as above showing ST wave inversions in the anterior leads, concern for possible ACS with chest pain complaints/radiation/palpitations - Check 2 D echo -Previously had nonstress test as an outpatient with cardiology, follows with Sharon Ayala, last seen 6 to 7 months ago -Consult cardiology (2) Palpitations: Plan: - as above (3) COVID-19: Plan: - COVID-19 positive since home test done on 11/29/2021, patient has been quarantining since then, not vaccinated - CXR reviewed and is negative for acute findings currently - O2 sats 100% on room air - WBC 4.28 -Without respiratory symptoms and no hypoxia she does not meet the qualifications for remdesivir or dexamethasone. Steroids would worsen headache. - Will need to quarantine for 5 days total, recommend vaccination 90 days after testing positive (4) Headache: Plan: - Avoid NSAIDs in the setting of possible ACS as above, can use tylenol for headache as needed DVT ppx: - teds, scds, Lovenox subcu CODE: Full code Dispo: From home, likely to remain in the hospital x 1-2 days History of Present Illness Chief Complaint: headache Primary Care Provider: Daniel Acosta MD This is a 46-year-old female with PMHx of headache, mitral valve regurgitation, and prolapsed uterus who presents with acute onset of chest pain, headache when her symptoms began on . Pt took a covid home test which resulted positive for COVID. She is NOT vaccinated. 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 Symptoms progressed to worsening nasal symptoms, fever of 102.3, and migraine which has been ongoing since Friday. Intermittently has been taking tylenol and motrin for pain relief and fever. The reason she presents to the hospital is due to having intermittent episodes of chest palpitations going on from 10-30 seconds with pain, it moves from the center of chest to the left side, and if it gets worse it goes up into her left neck, denies radiation to the back. This has occurred whenever she is sitting still, mostly notices it when she is sleeping, and states it happens 2-3 times per night for the past 3 nights consecutively. Pt follows with cardiology, typically with Stacey Ferrara and last saw her 6-7 months ago and had nonstress test which was normal. She had been going to cardiology for palpitations and was diagnosed with symptomatic PVCs. Other symptoms include poor po intake. Pt is able to keep some small amount of fluids down but overall oral intake is limited due to nausea. She has a hx of asthma, but denies shortness of breath, cough, no loss of taste or smell. At baseline she occasionally uses an inhaler but has not needed it recently. Bowels are moving and peeing ok. She denies dysuria, hematuria, increased frequency but does not she has a prolapsed uterus and is working with Dr. Jackson with emerging technologies director as an outpatient and considering surgical fixation. Allergies Allergy/AdvReac Type Severity Reaction Status Date / Time No Known Allergies Allergy Verified 12/02/21 19:40 Home Medications Medication Instructions Recorded Confirmed Type mometasone-formoterol HFA 200 2 puff INHALATION BID 04/12/20 12/02/21 History mcg-5 mcg/actuation aerosol inhaler (Dulera) multivit-iron 18 mg-folic acid 400 1 tab PO DAILY 04/12/20 12/02/21 History mcg-calcium 500 mg-minerals tablet (Women's One Daily) acetaminophen 500 mg tablet 1,000 mg PO Q6H PRN 12/02/21 12/02/21 History (Tylenol Extra Strength) ibuprofen 200 mg tablet 400 mg PO Q6H PRN 12/02/21 12/02/21 History Past Med/Surg History Medical History Mitral valve regurgitation Surgical History H/O knee surgery Hx of appendectomy Tubal ligation status Family History Other Cancer Heart disease Hypertension Social History Smoking Status: Never smoker Second Hand Exposure: No; Do You Dip or Chew Tobacco: No; Tobacco Cessation Education Requested by Patient: No Hx Alcohol Use: Yes Alcohol type: wine Hx Substance Use: No Preferred Language: Vietnamese Communication Ability: Effective Chief Media Officer Required: No Beliefs That Will Affect Care: None Current Living Situation: Spouse and Family Other Information That Helps Us Care for You: No Feels Safe at Home: Yes Safety Concerns: Feels Safe At This Time Assistive Devices: None Review of Systems Review of Systems: Constitutional: As per HPI, today no fever, sweats or chills Eyes: No diplopia, no worsening or blurred vision ENT: normal hearing, no trouble swallowing Respiratory: No cough, sputum, dyspnea at rest or on exertion Cardiovascular: Jennyfer per HPI. + chest pain, + palpitations Abdomen: No pain, nausea, vomiting, diarrhea or constipation Musculoskeletal: No joint pain, calf pain, swelling Neurologic: No weakness, numbness/tingling, or balance problems Psychiatric: No anxiety or depression Skin: No rash or itch Physical Exam Physical Exam: Please refer to attending addendum as I did not see the patient in person due to being COVID-19 positive Results & Data Results & Data ([facility]) Vital Signs (Past 12 Hours) Vital Signs Temp Pulse Pulse Resp BP BP Pulse Ox 12/02/21 18:37 68 17 100 12/02/21 18:36 68 16 131/83 100 12/02/21 16:49 83 18 119/76 100 12/02/21 14:51 36.3 C L 97 H 20 133/89 99 Laboratory Results 12/02/21 16:00 Urine Culture - Pending Urine,Clean Catch 12/02/21 12/02/21 12/02/21 Unknown 17:35 16:00 WBC RBC Hgb Hct MCV MCH MCHC RDW Std Deviation RDW Coeff of Sveta Plt Count MPV Immature Gran % (Auto) Neut % (Auto) Lymph % (Auto) [place] % (Auto) Eos % (Auto) Baso % (Auto) Neut # (Auto) Lymph # (Auto) [place] # (Auto) Eos # (Auto) Baso # (Auto) Immature Gran # (Auto) Sodium Potassium 3.2 L Chloride Carbon Dioxide Anion Gap BUN Creatinine Est Cr Clr Drug Dosing Est GFR ( Amer) Est GFR (Non-Af Amer) BUN/Creatinine Ratio Glucose Calcium Total Bilirubin AST 16 ALT Alkaline Phosphatase Troponin I High Sens Total Protein Albumin Globulin Albumin/Globulin Ratio Urine Color [place] Urine Appearance Cloudy A Urine pH 6.0 Ur Specific [place] 1.027 Urine Protein 2+ H Urine Glucose (UA) Negative Urine Ketones 3+ H Urine Blood 3+ H Urine Nitrite Negative Urine Bilirubin 1+ H Urine Urobilinogen Negative Ur Leukocyte Esterase 1+ H Urine WBC (Auto) 5-10 H Urine RBC (Auto) >30 H U Hyaline Cast (Auto) 1-5 U Epithel Cells (Auto) >30 H Urine Bacteria (Auto) 1+ H SARS-CoV-2, RNA, NAAT POSITIVE A* 12/02/21 12/02/21 16:00 16:00 WBC 4.28 L RBC 4.74 Hgb 13.5 Hct 41.3 MCV 87.1 MCH 28.5 MCHC 32.7 RDW Std Deviation 48.0 H RDW Coeff of Sveta 14.9 H Plt Count 219 MPV 11.0 H Immature Gran % (Auto) 0.2 Neut % (Auto) 55.7 Lymph % (Auto) 31.3 [place] % (Auto) 12.1 Eos % (Auto) 0.5 Baso % (Auto) 0.2 Neut # (Auto) 2.38 Lymph # (Auto) 1.34 [place] # (Auto) 0.52 Eos # (Auto) 0.02 Baso # (Auto) 0.01 Immature Gran # (Auto) 0.01 Sodium 139 Potassium Chloride 104 Carbon Dioxide 27 Anion Gap 8 BUN 11 Creatinine 0.70 Est Cr Clr Drug Dosing 94.9 Est GFR ( Amer) 122.1 Est GFR (Non-Af Amer) 105.4 BUN/Creatinine Ratio 15.7 Glucose 83 Calcium 9.2 Total Bilirubin 1.0 AST ALT 32 Alkaline Phosphatase 50 Troponin I High Sens 5.7 Total Protein 7.6 Albumin 4.5 Globulin 3.1 Albumin/Globulin Ratio 1.5 Urine Color Urine Appearance Urine pH Ur Specific [place] Urine Protein Urine Glucose (UA) Urine Ketones Urine Blood Urine Nitrite Urine Bilirubin Urine Urobilinogen Ur Leukocyte Esterase Urine WBC (Auto) Urine RBC (Auto) U Hyaline Cast (Auto) U Epithel Cells (Auto) Urine Bacteria (Auto) SARS-CoV-2, RNA, NAAT Diagnostic Findings Head CT 12/02/21 15:33 CT head/brain wo con CLINICAL HISTORY: marmolejo COMPARISON STUDY: 04/12/2020 CT DOSE: 537.48 mGy.cm TECHNIQUE: Standard CT of the Brain was performed without IV contrast. A dose lowering technique was utilized adhering to the principles of ALARA. FINDINGS: Extraaxial space: There is no evidence for subdural hematoma. There are no extra-axial fluid collections. Ventricles and cisterns: The ventricles are normal in size and configuration. There is no evidence for midline shift or mass effect. Parenchyma: There is no subarachnoid or intraparenchymal hemorrhage. There is no evidence for an acute infarct or cerebral edema. There is homogeneous attenuation of the brain parenchyma. There are no gross mass lesions. Osseous structures: There is no evidence for an acute fracture. The visualized paranasal sinuses are clear. The mastoid air cells are clear bilaterally. Soft tissues: There is no evidence for focal soft tissue swelling. IMPRESSION: 1. No acute intracerebral pathology. ACT 112: Negative or not required by law. Electronically signed by: Jose Shepherd M.D. 12/02/2021 5:04 PM Chest X-Ray 12/02/21 15:35 XR chest 1V portable CLINICAL HISTORY: cough. COMPARISON STUDY: 04/12/2020 TECHNIQUE: 1 view of the chest FINDINGS: Single frontal view of the chest demonstrates the cardiomediastinal silhouette to be within normal limits. The lungs are clear of alveolar opacities. There is no evidence for pleural effusion. There is no evidence for vascular congestion. There is no acute osseous pathology. IMPRESSION: 1. No acute cardiopulmonary disease. ACT 112: Negative or not required by law. Electronically signed by: Jose Shepherd M.D. 12/02/2021 5:03 PM ECG Additional Comments: 02-DEC-2021 18:00:56 [facility]-EDSTAT ROUTINE RETRIEVAL Normal sinus rhythm T wave abnormality, consider anterior ischemia Prolonged QT Abnormal ECG When compared with ECG of 12-APR-2020 15:07, No significant change was found 25mm/s10mm/[id number] 241CID: 16Referred by: REFERRED SELF Unconfirmed Vent. rate 78 BPM ND interval 136 ms QRS duration 88 ms QT/QTc 414/471 ms P-R-T axes 55 53 12 Supervising Physician Co-Signing Physician Notes Care coordinated with Nanci Horton PA-C. Agree with able note. Patient seen and examined. Vital signs reviewed. Physical exam: General exam: Alert and oriented. Not in acute distress. HEENT: Atraumatic, JOHN, Oral mucosa moist NECK; No neck masses, Supple CVS: S1 and S2 heard, regular rate and rhythm, no murmurs. RS: Clear to auscultation, no wheezing or crackles. ABD: Soft, bowel sounds present, nontender, no distention. LENS FINISHER: CN 2-12 Grossly intact, Speech clear, No facial droop, Nonfocal. EXT: No edema, no erythema. Labs: Reviewed. Assessment and plan: 46F with hx of Asthma presents with Covid symptoms since last and she tested at home positive for COVID on Friday. Started with stuff nose but since friday having severe headaches. She is also having intermittet chest pain and palpitations which prompted her to come to ER. Currently resting comfortably and hemodynamically stable. Denies any cough or fevers or nausea or abdominal pain. Had some diarrhea yesterday.Ally is not vaccinated. Works in Day care. She is interested in vaccination now. COVID having headaches no sob or cough afebrile saturating fine unvaccinated will monitor for now Chest pain and palpitations currently ok initial workup for chest pain ok serial CE and cardio consult Monitor in tele. Asthma stable on home inhalers. Other diagnosis and plan of care as per Possible UTI will follow cultures starting on mamadou cole. .
[2021-12-02] MEDS ORDERED: ONDANSETRON INJ 2 MG/ML 2 ML VIAL IV PRN (22:40)
[2021-12-02] MEDS ORDERED: ACETAMINOPHEN 325 MG TAB PO PRN (22:40)
[2021-12-02] MEDS ORDERED: POTASSIUM CHLORIDE CRTAB 20 MEQ TABCR PO STA (22:40)
[2021-12-02] MEDS ORDERED: ALBUTEROL HFA 8 GM INHALER INH PRN (22:56)
[2021-12-02] MEDS ORDERED: ENOXAPARIN INJ 40 MG/0.4 ML SYR SQ SCH (23:00)
[2021-12-02] MEDS: ALBUTEROL HFA 8 GM INHALER INH SCH (23:05)
[2021-12-03 01:39] LABS: Hematocrit (blood only) 37.8 % (37-47); Hemoglobin 12.1 g/dL (12.0-16.0); Mean Corpuscular Hemoglobin 27.3 pg (25-34); Mean Corpuscular Volume 85.3 fL (80-100); Mean Platelet Volume 10.5 fL (7.4-10.4); Platelet Count 172 K/uL (130-400); RDW Coefficient of Variation 14.8 % (11.5-14.5); RDW Standard Deviation 46.3 fL (36.4-46.3); Red Blood Count 4.43 M/uL (4.2-5.4); White Blood Count 3.74 K/uL (4.8-10.8)
[2021-12-03 02:00] LABS: Albumin Globulin Ratio 1.5 (0.9-2); Albumin Level 3.7 gm/dl (3.4-5.0); BUN Creatinine Ratio 15.4 (10-20); Bilirubin,Total 0.7 mg/dl (0.2-1.0); Calcium 8.4 mg/dl (8.5-10.1); Creatinine Clr Calc Pharmacy 102.8 ml/min; Est GFR (African American) 125.1 ml/min; Globulin 2.4 gm/dl (2.5-4.0); Magnesium 1.9 mg/dl (1.7-2.4); Potassium 3.6 mmol/L (3.5-5.1); Total Protein 6.1 gm/dl (6.0-8.3)
[2021-12-03] MEDS ORDERED: cefTRIAXone SODIUM 1,000 MG in DEXTROSE 5% 50 ML IV SCH (07:00)
[2021-12-03] MEDS: ALBUTEROL HFA 8 GM INHALER INH SCH (07:11)
--- NOTE | 2021-12-03 09:07 | Cardiology Consultation ---
Date of Consultation December 03, 2021 Assessment & Plan (1) Chest pain: (2) Palpitations: (3) COVID-19: (4) Prolonged QT interval: Atypical chest pain symptoms and palpitations in the setting Covid 19 + status. Symptoms have since resolved since admission No concerning findings on Tele over night QTC prolonged- likely in the setting of Zofran and Compazine use. Avoid qtc prolonging medications during stay and at discharge. Repeat EKG at noon to reassess QTc Will plan on following up as an outpatient- in the absence of symptoms recommendations for an echocardiogram as an outpatient. Case discussed with Dr. Brito, will follow. History of Present Illness Reason for Consultation: Chest pain, palpitations Requesting Physician: [facility] Attending Physician: Karon Aldridge DO History of Present Illness To limit the contact and spread of the COVID-19 virus chart/telemetry reviewed and telephone consultation was utilized. Patient primarily follows with MARYELLEN Ayala as an outpatient. Last seen 1 year ago 09/2020. 46-year-old female presents to the emergency department for complaints of chest pain. Symptoms started , 11/29. Symptoms are also accompanied by headache and URI symptoms. She then spiked a fever of 102.3 and took a home COVID test which was positive. Chest pain/palpitations are described as starting in the central to left-side of her chest, symptoms sometimes occur in the neck. No radiation to the back. Symptoms last about 10 to 30 seconds. Nonexertional. Mostly happens when sitting or wakes her from sleeping. Overall lab work has been unremarkable including negative HS troponin x4. Potassium was mildly low when she was supplemented. Chest x-ray showed no acute cardiopulmonary disease EKG 12/02: Normal sinus rhythm, T wave abnormality in anterior leads, 78 bpm. QTc 471 ms EKG 12/03: Normal sinus rhythm, T wave abnormality in septal anterior leads, 85 bpm. QTc prolonged at 516 ms Tele: SR 60-70s. Per the patient she has been feeling much better compared to yesterday. She has not had any chest pain or further episodes of tachy palpitations. Her migraine has resolved and she now only feels a slight head ache at times. No shortness of breath. No lower extremity edema. Denies any further nausea- last dose of antiemetics, specifically Zofran was yesterday. She voices that she is eager to go home. Past medical history: History of palpitations, secondary to symptomatic PACs and PVCs as well as increased cardiac awareness History of 1 single episode of nonsustained VT, 6 beats on outpatient media monitor History of PFO/ASD aneurysm with [id number] shunt Negative SONIA 10/25/2020 Allergies Allergy/AdvReac Type Severity Reaction Status Date / Time No Known Allergies Allergy Verified 12/02/21 19:40 Home Medications Medication Instructions Recorded Confirmed Type mometasone-formoterol HFA 200 2 puff INHALATION BID 04/12/20 12/02/21 History mcg-5 mcg/actuation aerosol inhaler (Dulera) multivit-iron 18 mg-folic acid 400 1 tab PO DAILY 04/12/20 12/02/21 History mcg-calcium 500 mg-minerals tablet (Women's One Daily) acetaminophen 500 mg tablet 1,000 mg PO Q6H PRN 12/02/21 12/02/21 History (Tylenol Extra Strength) ibuprofen 200 mg tablet 400 mg PO Q6H PRN 12/02/21 12/02/21 History Patient History Medical History Mitral valve regurgitation Surgical History H/O knee surgery Hx of appendectomy Tubal ligation status Family History Other Cancer Heart disease Hypertension Social History Smoking Status: Never smoker Second Hand Exposure: No; Do You Dip or Chew Tobacco: No; Tobacco Cessation Education Requested by Patient: No Hx Alcohol Use: Yes Alcohol type: wine Hx Substance Use: No Preferred Language: Yakut Communication Ability: Effective Solar Photovoltaic Crew Lead Required: No Beliefs That Will Affect Care: None Current Living Situation: Spouse and Family Other Information That Helps Us Care for You: No Feels Safe at Home: Yes Safety Concerns: Feels Safe At This Time Assistive Devices: None Review of Systems Review of Systems: All systems reviewed & are unremarkable except as noted in HPI & below Physical Exam Physical Exam: Deferred due to COVID 19 status Results & Data ([facility]) Vital Signs (Past 12 Hours) Vital Signs Temp Pulse Pulse Resp BP BP Pulse Ox 12/03/21 07:55 36.7 C 84 20 120/80 98 12/03/21 07:32 75 12/03/21 07:15 84 16 99 12/03/21 03:00 36.7 C 82 15 109/72 97 12/03/21 00:00 12/02/21 23:08 65 18 99 12/02/21 22:45 36.6 C 66 90 14 137/91 99 12/02/21 22:03 65 18 115/65 98 12/02/21 21:10 66 18 131/84 100 Pulse Ox 12/03/21 07:55 12/03/21 07:32 12/03/21 07:15 12/03/21 03:00 12/03/21 00:00 99 12/02/21 23:08 12/02/21 22:45 12/02/21 22:03 12/02/21 21:10 Laboratory Results Cardiac Enzymes 12/02/21 12/02/21 12/02/21 Range/Units 16:00 17:35 19:33 AST 16 (13-39) U/L Troponin I High Sens 5.7 6.3 (0-14) pg/ml 12/03/21 12/03/21 12/03/21 Range/Units 01:27 01:28 07:12 AST 15 (13-39) U/L Troponin I High Sens 5.3 4.3 (0-14) pg/ml CBC 12/02/21 12/03/21 Range/Units 16:00 01:27 WBC 4.28 L 3.74 L (4.8-10.8) K/uL RBC 4.74 4.43 (4.2-5.4) M/uL Hgb 13.5 12.1 (12.0-16.0) g/dL Hct 41.3 37.8 (37-47) % Plt Count 219 172 (130-400) K/uL Neut # (Auto) 2.38 (1.4-6.5) K/uL Lymph # (Auto) 1.34 (1.2-3.4) K/uL [place] # (Auto) 0.52 (0.11-0.59) K/uL Eos # (Auto) 0.02 (0-0.5) K/uL Baso # (Auto) 0.01 (0-0.2) K/uL Comprehensive Metabolic Panel 12/02/21 12/02/21 12/03/21 Range/Units 16:00 17:35 01:28 Sodium 139 140 (136-145) mmol/L Potassium 3.2 L 3.6 (3.5-5.1) mmol/L Chloride 104 109 H (98-107) mmol/L Carbon Dioxide 27 26 (21-32) mmol/L BUN 11 10 (6-23) mg/dl Creatinine 0.70 0.65 (0.6-1.2) mg/dl Glucose 83 81 (70-99(Fasting)) mg/dl Calcium 9.2 8.4 L (8.5-10.1) mg/dl AST 16 15 (13-39) U/L ALT 32 22 (7-52) U/L Alkaline Phosphatase 50 42 (34-104) U/L Total Protein 7.6 6.1 (6.0-8.3) gm/dl Albumin 4.5 3.7 (3.4-5.0) gm/dl Intake and Output 12/02/21 12/03/21 12/03/21 22:59 06:59 14:59 Intake Total 1000 / 1100 100 / 1100 60 / 60 Output Total 550 / 550 Balance 1000 / 550 -450 / 550 60 / 60 Intake: IV 1000 / 1000 60 / 60 Sodium Chloride 0.9% 1000ML 1, 1000 / 1000 000 ml @ 999 mls/hr IV .Q1H1M ONE Rx#:[id number] cefTRIAXone SODIUM 1,000 mg In 60 / 60 Dextrose 5% 50 ml @ 120 mls/hr IV Q24H [facility] Rx#:[id number] Oral 100 / 100 Output: Urine 550 / 550 Other: Weight 79.124 kg Weight Measurement Method Standing Scale Diagnostic Findings SONIA 10/2020 The primary indication after review was deemed appropriate and the examination was performed. The stress echo is negative for inducible ischemia. No arrhythmias. Normal heart rate blood pressure response to exercise. Average exercise tolerance for age. At rest, normal LV chamber size and wall thickness. Normal LV systolic function without regional wall motion abnormality, EF 60 to 65%. Grade 1 diastolic dysfunction. Mild mitral regurgitation. Mild left atrial enlargement. There is an atrial septal aneurysm present.
[2021-12-03] MEDS ORDERED: ASPIRIN 81 MG ECTAB PO SCH (12:00)
--- NOTE | 2021-12-03 14:06 | Electrocardiogram Report ---
Test Reason : Blood Pressure : / mmHG Vent. Rate : 078 BPM Atrial Rate : 078 BPM P-R Int : 136 ms QRS Dur : 088 ms QT Int : 414 ms P-R-T Axes : 055 053 012 degrees QTc Int : 471 ms Normal sinus rhythm T wave abnormality, consider anterior ischemia Prolonged QT Abnormal ECG When compared with ECG of 12-APR-2020 15:07, No significant change was found Confirmed by Shaun Gonzales ([id number]) on 12/03/2021 2:06:10 PM Referred By: REFERRED SELF Confirmed By:Shaun Gonzales
--- NOTE | 2021-12-03 14:16 | Electrocardiogram Report ---
Test Reason : Blood Pressure : / mmHG Vent. Rate : 085 BPM Atrial Rate : 085 BPM P-R Int : 128 ms QRS Dur : 086 ms QT Int : 434 ms P-R-T Axes : 076 065 032 degrees QTc Int : 516 ms Normal sinus rhythm Prolonged QT Abnormal ECG When compared with ECG of 02-DEC-2021 18:00, (unconfirmed) QT has lengthened Confirmed by hSaun Gonzales ([id number]) on 12/03/2021 2:15:42 PM Referred By: REFERRED SELF Confirmed By:Shaun Gonzales
--- NOTE | 2021-12-03 14:26 | Electrocardiogram Report ---
Test Reason : Blood Pressure : / mmHG Vent. Rate : 069 BPM Atrial Rate : 069 BPM P-R Int : 134 ms QRS Dur : 082 ms QT Int : 442 ms P-R-T Axes : 065 059 028 degrees QTc Int : 473 ms Normal sinus rhythm Normal ECG When compared with ECG of 03-DEC-2021 08:45, (unconfirmed) No significant change was found Confirmed by Shaun Gonzales ([id number]) on 12/03/2021 2:25:48 PM Referred By: REFERRED SELF Confirmed By:Shaun Gonzales
--- NOTE | 2021-12-03 14:46 | Discharge Summary ---
Date of Service December 03, 2021 Admission HPI Per Admitting Provider This is a 46-year-old female with PMHx of headache, mitral valve regurgitation, and prolapsed uterus who presents with acute onset of chest pain, headache when her symptoms began on . Pt took a covid home test which resulted positive for COVID. She is NOT vaccinated. 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 Symptoms progressed to worsening nasal symptoms, fever of 102.3, and migraine which has been ongoing since Friday. Intermittently has been taking tylenol and motrin for pain relief and fever. The reason she presents to the hospital is due to having intermittent episodes of chest palpitations going on from 10-30 seconds with pain, it moves from the center of chest to the left side, and if it gets worse it goes up into her left neck, denies radiation to the back. This has occurred whenever she is sitting still, mostly notices it when she is sleeping, and states it happens 2-3 times per night for the past 3 nights consecutively. Pt follows with cardiology, typically with Stacey Ferrara and last saw her 6-7 months ago and had nonstress test which was normal. She had been going to cardiology for palpitations and was diagnosed with symptomatic PVCs. Other symptoms include poor po intake. Pt is able to keep some small amount of fluids down but overall oral intake is limited due to nausea. She has a hx of asthma, but denies shortness of breath, cough, no loss of taste or smell. At baseline she occasionally uses an inhaler but has not needed it recently. Bowels are moving and peeing ok. She denies dysuria, hematuria, increased frequency but does not she has a prolapsed uterus and is working with Dr. Jackson with dividing machine operator as an outpatient and considering surgical fixation. Principal Diagnosis chest pain covid infection prolonged QTc Discharge Data Allergies Allergy/AdvReac Type Severity Reaction Status Date / Time No Known Allergies Allergy Verified 12/02/21 19:40 Consultations 12/02/21 18:25 ED Decision to Admit Stat 12/02/21 19:34 Consult Cardiology Routine Ordered Studies 12/02/21 15:33 CT head/brain wo con Stat Hospital Course (1) Chest pain: - Admit to tele for observation for r/o - Trend cardiac biomarkers, initial set was negative, will check again now, then Q6H x 2 more sets - EKG reviewed as above showing ST wave inversions in the anterior leads, concern for possible ACS with chest pain complaints/radiation/palpitations - Check 2 D echo -Previously had nonstress test as an outpatient with cardiology, follows with Sharon Ayala, last seen 6 to 7 months ago -Consult cardiology (2) Palpitations: - as above (3) COVID-19: - COVID-19 positive since home test done on 11/29/2021, patient has been quarantining since then, not vaccinated - CXR reviewed and is negative for acute findings currently - O2 sats 100% on room air - WBC 4.28 -Without respiratory symptoms and no hypoxia she does not meet the qualifications for remdesivir or dexamethasone. Steroids would worsen headache. - Will need to quarantine for 5 days total, recommend vaccination 90 days after testing positive (4) Headache: - Avoid NSAIDs in the setting of possible ACS as above, can use tylenol for headache as needed DVT ppx: - teds, scds, Lovenox subcu CODE: Full code Dispo: From home, likely to remain in the hospital x 1-2 days Discharge Plan Discharge Items Patient Disposition: Home - Self-Care Reason For Visit: CHEST PAIN, HEADACHE Discharge Diagnosis: chest pain covid infection prolonged QTc Condition on Discharge: Good Activity: Resume your previous activity Non-emergency contact: Primary Care Provider Call non-emergency contact if: you have any medication questions, your symptoms worsen, your pain is not controlled and your pain is concerning for you Follow-up/Referrals: Tex Ramirez, DO [Outside Practitioners] - (Date & Time 12/13/2021 10:00 [facility] ) Diet: Regular Addtl Attending Provider Instructions: Please take all medications as instructed on discharge list below. Daily baby aspirin was recommended for primary stroke prevention. Followup with [facility] Cardiology as outpatient is recommended for follow-up from this hospital stay. Someone should contact you from the office with the date and time. Please followup with your primary care physician at the date and time above to ensure you had no return of symptoms after returning home, and to continue investigation into the cause of these symptoms. It was a pleasure taking care of you! Please call if you have any questions or problems. You can reach a [facility] hospitalist on duty at [facility] 24 hours a day by calling [phone]. Take care of yourself. Karon Aldridge DO [facility] Hospitalist Pending Studies at Discharge: No Stand-Alone Forms: My [facility] Medications and DC Order Prescriptions: New aspirin 81 mg Tablet,Delayed Release (Dr/Ec) 81 mg PO QAM Qty: 90 RF: 0 Continued Dulera 200-5 mcg/actuation HFA aerosol inhaler 2 puff INHALATION BID RF: 0 Women's One Daily 18 mg iron-400 mcg-500 mg Ca Tablet 1 tab PO DAILY RF: 0 acetaminophen [Tylenol Extra Strength] 500 mg Tablet 1,000 mg PO Q6H PRN (Reason: headache/pain) RF: 0 ibuprofen 200 mg Tablet 400 mg PO Q6H PRN (Reason: HEADACHE/PAIN) RF: 0 Discharge Orders: Discharge Order (Routine); Ordered 12/03/21 Ordered By: Karon Aldridge Admission Data Admit Date/Time: 12/02/21 19:19 Attending Provider: Karon Aldridge Admit Provider: Karon Aldridge Primary Care Provider: Daniel Acosta Other Providers: Karon Aldridge ; Alexsander Brito
== END 2021-12-03 15:47 | disposition home or self-care (01) ==
LOC: 2S 14:43 → ED 14:43 → SUATTDRO 19:19 → 2S 22:03
DX: U07.1 COVID-19; R00.2 Palpitations; R07.9 Chest pain, unspecified; G43.909 Migraine, unspecified, not intractable, without status migrainosus; I45.81 Long QT syndrome; A41.9 Sepsis, unspecified organism

== ENCOUNTER 2022-10-18 06:39 | Observation (INO) ==
--- NOTE | 2022-10-15 13:23 | Anesthesiology Consultation ---
Date of Service October 15, 2022 Assessment & Plan (1) Encounter for pre-operative examination: Chart Review Chart Review: Acceptable Risk for Surgery and Patient NOT seen in Pre Admission Testing - Discussed with Dr. Rizo- patient can proceed as scheduled - Check test AM DOS -COVID screening: Per PAT nursing assessment on 10/04/22. No known COVID-19 positive contacts or current COVID-19 related symptoms. Travel screen negative. Patient is NOT vaccinated for Covid. At surgeon discretion if preop Covid testing being done. History Surgery Operation Date: 10/18/22 11:00 Proposed Procedures p Total Laparoscopic Hysterectomy, Bilateral Salpingectomy and Cystoscopy, Possible Laparotomy - Lorenzo Arita MD Height/Weight Height: 5 ft Weight: 79.379 kg Allergies Allergy/AdvReac Type Severity Reaction Status Date / Time No Known Allergies Allergy Verified 10/04/22 14:36 Medications Home Medications Medication Instructions Recorded Confirmed Last Taken mometasone-formoterol HFA 200 2 puff inhalation BID 04/12/20 10/04/22 Unknown mcg-5 mcg/actuation aerosol inhaler (Dulera) multivit-iron 18 mg-folic acid 400 1 tab PO DAILY 04/12/20 10/04/22 Unknown mcg-calcium 500 mg-minerals tablet (Women's One Daily) acetaminophen 500 mg tablet 1,000 mg PO Q6H PRN headache/pain 12/02/21 10/04/22 12/02/21 13:00 (Tylenol Extra Strength) meclizine 25 mg tablet 25 mg PO TID PRN dizziness #14 tabs 02/21/22 10/04/22 Unknown iron,carbonyl 65 mg-vitamin C 125 1 tab PO HS 10/04/22 10/04/22 Unknown mg tablet,delayed release (Vitron-C) norethindrone acetate 5 mg tablet 5 mg PO QAM 10/04/22 10/04/22 Unknown Past Medical History Medical History (Updated 10/15/22 @ 13:40 by Stacey Rudolph PA-C) Cough EXERCISED/WEATHER INDUCED COUGH>REASON FOR INHALER (DENIES CONGESTION/COUGH NOW) 2019 INHALER RX>NO PROBLEMS SINCE INHALER RX DAILY History of COVID-19 11/2021>RESOLVED Hx of vertigo Migraine Palpitations History of; secondary to sympomatic PACs and PVCs per 11/2021 cardiac consultation PFO (patent foramen ovale) History of PFO/ASD aneurysm with left to right shunt Ventricular tachycardia Hx 1 single episode of nonsustained VT, 6 beats on outpatient telemetry [place] Past Family History Family History Other Cancer Heart disease Hypertension No family history of adverse response to anesthesia Past Surgical History Surgical History H/O knee surgery LEFT ARTHROSCOPY ACL REPAIR H/O sinus surgery Hx of appendectomy Tubal ligation status [place] teeth removed Social History Smoking Status: Never smoker Do You Dip or Chew Tobacco: No Hx Alcohol Use: Yes Alcohol type: wine alcohol intake frequency: a few times a month Hx Substance Use: No substance use type: does not use Testing Laboratory Results 10/15/22= WBC: 5.15 H/H: 13.5/42.1 PLATELETS: 217 Electrocardiogram Date: 02/15/22 NSR with sinus arrhythmia at 80bpm When compared to EKG from December 03, 2021- nonspecific T wave abnormality worse in anterior leads per cardio Chest X-Ray Date: 12/02/21 Findings: + NAD Echocardiogram Date: 12/03/21 EF: 55-60% LV Function: normal RWMA: + none Other Findings: + LVH (mild/concentric ) and + diastolic dysfunction (Grade I ) Valvular Disease: + no significant valvular disease Atrial septal aneurysm incidentally noted, with small, hemodynamically insignificant shunt. Consider daily ASA for stroke prophylaxis. Closure not currently indicated Stress Test Date: 10/25/20 Type: exercise (ECHO ) Resting EF: 60 to 64% of Stress echo was negative for inducible ischemia. No arrhythmias. Normal heart rate and BP response to exercise. Average exercise tolerance for age. At rest, normal LV chamber size and wall thickness. EF 60 to 65%. No regional wall motion abnormalities. Grade 1 DD. Mild MR. Mild left atrial enlargement. Atrial septal aneurysm present
[~2022-10-18 06:39] MED LIST changes: +LACTATED RINGER'S 1,000 ML IV SCH; +LR 15ML/HR IV SCH; +MISSING Provider Signature on ORDER(s) SCH; -ONDA4TAB4 SL; -OXYC1TAB3 PO; -PEDICHW53 PO; +ceFAZolin 2000MG 2,000 MG/15 ML SYR IV SCH
[2022-10-18] MEDS ORDERED: ceFAZolin 2,000 MG/15 ML IV PUSH IV ONE (06:55)
[2022-10-18 07:22] LABS: Pregnancy Test, Serum Negative (Negative)
[2022-10-18] MEDS ORDERED: ROCURONIUM BROMIDE 10 MG/ML 5 ML VIAL IV ONE (07:56)
[2022-10-18] MEDS ORDERED: DEXAMETHASONE SOD INJ 4 MG/ML VIAL ONE ×2 (07:56→10:11)
[2022-10-18] MEDS ORDERED: PROPOFOL IV EMULSION 10 MG/ML 20 ML VIAL IV ONE (07:56)
[2022-10-18] MEDS ORDERED: LIDOCAINE 2% 2 ML VIAL/AMP(20MG/ML) INFIL ONE (07:56)
[2022-10-18] MEDS ORDERED: ONDANSETRON INJ 2 MG/ML 2 ML VIAL ONE (07:56)
[2022-10-18] MEDS ORDERED: MIDAZOLAM HCL 1 MG/ML 2ML VIAL ONE (07:57)
[2022-10-18] MEDS ORDERED: fentaNYL citrate PF 100 MCG/2 ML VIAL ONE (07:57)
[2022-10-18] MEDS ORDERED: ONDANSETRON INJ 2 MG/ML 2 ML VIAL IV PRN ×2 (08:11→11:29)
[2022-10-18] MEDS ORDERED: ePHEDrine sulfate 50 MG/ML AMP IV PRN (08:11)
[2022-10-18] MEDS ORDERED: METOCLOPRAMIDE HCL INJ 5 MG/ML 2 ML VIAL IV PRN (08:11)
[2022-10-18] MEDS ORDERED: HYDROmorphone INJ 1 MG/ML SYRINGE IV PRN (08:11)
[2022-10-18] MEDS ORDERED: ATROPINE SULFATE 0.1 MG/ML 10ML SYR IV PRN (08:11)
--- NOTE | 2022-10-18 08:27 | History & Physical Bridge Note ---
Date of Service October 18, 2022 History & Physical Bridge Note I have examined the patient, reviewed the History & Physical and in the interval since the performance of the History & Physical I have noted the following changes of clinical significance: no changes noted
[2022-10-18] MEDS ORDERED: METHYLENE BLUE 0.5% 10 ML VIAL ONE (08:40)
[2022-10-18] MEDS ORDERED: BUPIVACAINE 0.5 % 5 MG/1 ML MPF 30ML VIAL ONE (08:40)
[2022-10-18] MEDS ORDERED: HYDROmorphone INJ 2 MG/ML SYR/VIAL ONE (09:10)
[2022-10-18] MEDS ORDERED: MINERAL OIL LIGHT 10 ML BTL ONE (09:42)
[2022-10-18] MEDS ORDERED: FLOSEAL HEMOSTATIC MATRIX 10ML TOP ONE (09:56)
[2022-10-18] MEDS ORDERED: ESMOLOL HCL INJ 10 MG/ML 10ML VIAL IV ONE (10:10)
[2022-10-18] MEDS ORDERED: SUGAMMADEX SODIUM 200 MG/2 ML VIAL IV ONE (11:09)
--- NOTE | 2022-10-18 11:27 | Post Operative Brief Note ---
Immediate Post Op Note v1 Date of Surgery October 18, 2022 Pre & Post Diagnosis Operation Date: 10/18/22 08:20 Pre-Op Diagnosis: Menorrhagia, Uterine prolapse Post-Op Diagnosis: Menorrhagia, Uterine Prolapse I identified the patient and participated in the time-out.: Yes Procedure Operation Date: 10/18/22 08:20 Actual Procedures p Total Laparoscopic Hysterectomy, Bilateral Salpingectomy, Cystoscopy - Lorenzo Arita MD Surgeon Lorenzo Arita MD Bead Picker nini grimes Estimated Blood Loss 10 Findings Consistent with Post-Op Diagnosis Drains Hernandez Catheter
[2022-10-18] MEDS ORDERED: ZOLPIDEM TARTRATE 5 MG TAB PO PRN (11:29)
[2022-10-18] MEDS ORDERED: MAGNESIUM HYDROXIDE SUSP 30 ML UDC PO PRN (11:29)
[2022-10-18] MEDS ORDERED: SIMETHICONE 80 MG CHEW PO PRN (11:29)
[2022-10-18] MEDS ORDERED: oxyCODONE/ACETAMINOPHEN 5mg/325mg TAB PO PRN (11:29)
[2022-10-18] MEDS ORDERED: LACTATED RINGER'S 1,000 ML IV SCH (11:30)
[2022-10-18] MEDS: fentaNYL citrate PF 100 MCG/2 ML VIAL IV PRN ×3 (11:40→11:51)
--- NOTE | 2022-10-18 12:27 | Anesthesiology Progress Note ---
Date of Service October 18, 2022 Anesthesia Post Procedure Vital Signs Vital Signs: Temp Pulse Pulse Resp BP Pulse Ox O2 Del Method 10/18/22 12:15 36.6 C 66 14 125/76 97 Room Air 10/18/22 12:05 68 15 127/74 96 Room Air 10/18/22 11:55 68 11 L 124/81 95 Room Air 10/18/22 11:50 81 13 127/88 98 Room Air 10/18/22 11:40 87 15 131/84 99 Room Air 10/18/22 11:30 87 13 131/82 100 Oxymask 10/18/22 11:20 36.4 C L 90 18 127/83 100 Oxymask 10/18/22 07:05 36.7 C 95 H 18 98 Room Air O2 Flow Rate 10/18/22 12:15 10/18/22 12:05 10/18/22 11:55 10/18/22 11:50 10/18/22 11:40 10/18/22 11:30 5 10/18/22 11:20 8 10/18/22 07:05 Pain Intensity Abdomen: Pain Intensity: 6 Transfer of Care Handoff Completed per policy Notes Mental Status: alert / awake / arousable and participated in evaluation Nausea / Vomiting: adequately controlled Pain: adequately controlled Airway Patency, RR, SpO2: stable & adequate BP & HR: stable & adequate Hydration State: stable & adequate Anesthetic Complications: no major complications apparent and Pt Satisfied with anesthetic care
--- NOTE | 2022-10-18 13:04 | Operative Report (OR) ---
DATE OF PROCEDURE: 10/18/2022. PLACE OF PROCEDURE: [facility]. INDICATION FOR SURGERY: This is a 47-year-old with menorrhagia, unresponsive to medical therapy. Th e patient wishes to have total laparoscopic hysterectomy. PREOPERATIVE DIAGNOSES: 1. Menorrhagia, unresponsive to medical therapy. 2. Patient wishes to have laparoscopic hysterectomy. POSTOPERATIVE DIAGNOSES: 1. Menorrhagia, unresponsive to medical therapy. 2. Patient wishes to have laparoscopic hysterectomy. PROCEDURES: Total laparoscopic hysterectomy with bilateral salpingectomy, cystoscopy. SURGEON: Lorenzo Arita MD. HOTEL YARDPERSON: MUNIRA Powell. ATTESTATION FOR HOTEL YARDPERSON: Jewelry Finisher was necessary to help with retraction and manipulation of instr uments in order to provide for safe surgery. ANESTHESIA: General. DRAINS: None. ESTIMATED BLOOD LOSS: 10 mL. INTRAVENOUS FLUIDS: 1200 mL. URINE OUTPUT: 500 mL of clear urine at the end of the procedure. SPECIMEN: The uterus with cervix, left and right fallopian tubes. INTRAOPERATIVE COMPLICATIONS: None. PATIENT CONDITION: Stable. DISPOSITION: Postanesthesia Care Unit. ATTESTATION: I performed the entire procedure. FINDINGS: Normal female escutcheon. The patient had a grade 2-3 uterine prolapse. Cervix appeared grossly normal. Laparoscopic findings: The uterus is about 8-10 week size. Both ovaries appeared g rossly normal. The patient had had a prior bilateral tubal ligation. Tubes otherwise were normal. T here were no significant adhesions seen in the pelvis or abdomen. The appendix was absent from prior surgery. DESCRIPTION OF PROCEDURE: The patient was taken to the operating room where she was prepped and drap ed in normal sterile fashion in dorsal lithotomy position. Timeout was called. Hernandez catheter was p laced into the bladder. A weighted speculum was placed in the vagina. Uterine manipulator was place d into the uterus to help manipulate the uterus during laparoscopy. The uterus had sounded to 8 cm. Attention was then paid to the abdominal part of the procedure where a supraumbilical incision was m spike with a scalpel. Veress needle was introduced into the abdomen at a 45-degree angle while tenting up the abdomen. Intra-abdominal placement was confirmed with a water-filled syringe. Water drop an d suction test was performed. The abdomen was insufflated with 3.5 liters of CO2 gas. Veress needle was removed and a 5 mm trocar attached to a scope was introduced into the abdomen at a 45-degree ang le while tenting up the abdomen. This was a nonbladed trocar. Entry was done under direct visualiza tion. Once inside the abdomen, the findings as dictated above. The patient was placed in Trendelenb urg position and three more accessory ports were placed. Two 5 mm ports were placed on both sides in the lower pelvis. A 10 mm port was placed in the left upper quadrant. Upon entry into the abdomen, the Plavix is examined. The uterus and the left and right fallopian tubes, the bladder, the ureters and uterosacrals were identified. The bowels, the cecum identified as well. The appendix was absen t from prior surgery. LigaSure was passed through the left accessory port. The left fallopian tube was identified and grab bed 4 cm from the cornua of the uterus with the LigaSure and transected. This was followed by openin g of the left anterior leaf of the broad ligament. This allowed for fenestration of the posterior le af of the broad ligament. The mid-section of the left fallopian tube, utero-ovarian and meso-ovarian pedicles were transected. Same procedure was performed on contralateral side. The anterior broad l igament dissection was carried to the mid-section of the vesicouterine peritoneum over the bladder us ing the Harmonic scalpel. Same procedure was carried out on the contralateral side. The posterior b road ligament peritoneum was carefully dissected also from both sides over the uterosacral arch in or nora to display the ureters laterally. Using traction and countertraction, the [place] retractor and irrigation probe was used to further dissect the bladder off the lower segment of the uterus. Bladd er pillars and pubovesical fascia were dissected as well. The harmonic scalpel was used to obtain he mostasis when needed. Uterine manipulator was now palpable over the vaginal tissue. The right uteri ne pedicles were skeletonized and coagulated using the LigaSure. Good hemostasis was obtained. Same procedure was performed on the contralateral side. The cardinal ligaments were transected on both s ides. Once good hemostasis was obtained, colpotomy was performed using the LigaSure hook from both s ides. The uterus was removed through the vagina while still attached to the uterine manipulator. Th e bulb was attached to the uterine manipulator was reinserted into the vagina to establish pneumoperi toneum. Using a grasper, the remaining section of the left tube was positioned anteromedially and sa lpingectomy was performed. Same procedure was performed on the contralateral side. EndoStitch closure device was passed through the 10 mm port on the left and using the [place] graspe r for traction, the colpotomy closure was performed. The uterosacrals were incorporated into the malinda sure in order to decrease the risks of prolapse. Lapra-Tys were used with the EndoStitch. The 10 mm trocar site was closed with a Ren-Susu under direct visualization. Attention was paid to the cystoscopy part of the procedure where a cystoscope was introduced into the bladder. Evaluation of the bladder shows no trauma, bleeding, or sutures. There was a bubble sign confirming that this was closed cavity. Both the urethra orifices are seen and there was bilateral e fflux of urine from both ureteral orifices. All instruments were removed from the bladder and the vagina. The incision sites on the abdomen were closed. The 5 mm sites were closed with Dermabond. As stated above earlier, the 10 mm trocar site was closed under direct visualization. The skin incision over the 10 mm site was closed with a 4-0 M onocryl. All instruments were removed from the vagina and the abdomen and accounted for x2. The patient is se nt to recovery in stable condition. Job ID: [id number]
[2022-10-18] MEDS: oxyCODONE/ACETAMINOPHEN 5mg/325mg TAB PO PRN ×2 (14:09→19:17)
[2022-10-18] MEDS: IBUPROFEN 600 MG TAB PO PRN ×2 (14:09→19:16)
[2022-10-18] MEDS: DOCUSATE SODIUM 100 MG CAP PO SCH (20:55)
[2022-10-19] MEDS: IBUPROFEN 600 MG TAB PO PRN ×2 (06:02→11:13)
[2022-10-19 06:42] LABS: Eosinophils # (auto) 0.01 K/uL (0-0.50); Eosinophils % (auto) 0.1 %; Hematocrit (blood only) 35.8 % (37.0-47.0); Hemoglobin 11.6 g/dl (12.0-16.0); Immature Granulocytes # (auto) 0.03 K/uL (0.01-0.20); Immature Granulocytes % (auto) 0.4 %; Lymphocytes # (auto) 1.27 K/uL (1.2-3.4); Lymphocytes % (auto) 15.6 %; Mean Corpuscular Hemoglobin 28.8 pg (25.0-34.0); Mean Corpuscular Hgb Conc 32.4 g/dL (32.0-36.0); Mean Corpuscular Volume 88.8 fL (80.0-100.0); Mean Platelet Volume 11.2 fL (9.4-12.4); Monocytes # (auto) 0.73 K/uL (0.11-0.59); Neutrophils % (auto) 74.9 %; Platelet Count 192 K/uL (130-400); RDW Coefficient of Variation 14.3 % (11.5-14.5); RDW Standard Deviation 46.2 fL (36.4-46.3); Red Blood Count 4.03 M/uL (4.20-5.40); White Blood Count 8.14 K/ul (4.8-10.8)
[2022-10-19 06:57] LABS: BUN Creatinine Ratio 16.7 (10-20); Calcium 8.2 mg/dl (8.6-10.3); Creatinine Clr Calc Pharmacy 100.3 ml/min; Est GFR (African American) 123.6 ml/min; Est GFR (Non-African American) 106.7 ml/min; Potassium 3.7 mmol/L (3.5-5.1)
--- NOTE | 2022-10-19 08:34 | Obstetrical Progress Note ---
Date of Service October 19, 2022 Assessment & Plan (1) S/P laparoscopic hysterectomy: Pt doing well d/c home with instructions Subjective Review of Systems All systems reviewed & are unremarkable except as noted in HPI & below Physical Exam Constitutional WD/WN, vitals as above Eyes PERRL, conjunctivae normal, anicteric sclerae ENMT external ear and nose normal, oropharynx normal Neck trachea midline, no thyromegaly Respiratory normal respiratory effort, lungs clear to auscultation Cardiovascular RRR, no murmur, no edema Chest (Breasts) normal inspection/palpation of breasts Gastrointestinal (Abdomen) normal bowel sounds, soft, nontender, no hepatosplenomegaly Musculoskeletal no cyanosis or clubbing, extremities motor strength 5/5 Skin + incision (Incision clean,dry and intact) Neurologic patellar DTR's 2+ bilat, sensation intact Psychiatric A+Ox3, euthymic affect Genitourinary no vaginal lesions, no adnexal mass Lymphatic no cervical or axillary lymphadenopathy Results & Data Vital Signs (Past 12 Hours) Vital Signs Temp Pulse Resp BP Pulse Ox O2 Del Method 10/19/22 02:50 37 C 87 16 108/64 99 Room Air 10/18/22 23:05 37 C 96 H 18 107/60 98 Room Air
--- NOTE | 2022-10-19 10:42 | Discharge Summary (DS) ---
DATE OF ADMISSION: 10/18/2022 DATE OF DISCHARGE: 10/19/2022 CHIEF COMPLAINT: Menorrhagia, failed medical therapy. HISTORY OF PRESENT ILLNESS: This is a 47-year-old with menorrhagia, failed medical therapy, who unde rwent total laparoscopic hysterectomy with bilateral salpingectomy and cystoscopy. Surgery was unrem arkable. Details of surgery is in the surgical note. This morning, patient is doing well and is dee ng discharged home in stable condition. PAST MEDICAL HISTORY: History of vertigo, migraines, palpitations, ventricular tachycardia. PAST SURGICAL HISTORY: History of knee surgery, sinus surgery, appendectomy, bilateral tubal ligatio n and dental procedures. SOCIAL HISTORY: The patient is and lives with spouse. Denies tobacco, drug or alcohol histo ry. FAMILY HISTORY: Noncontributory. ALLERGIES: None. REVIEW OF SYSTEMS: Negative except under HPI. PHYSICAL EXAMINATION: GENERAL: Well-developed, well-nourished white female in no acute distress. VITAL SIGNS: Vitals this morning read blood pressure 108/64, pulse 87, respirations 16, temperature 37. HEART: S1 and S2, regular rhythm and rate. LUNGS: Clear to auscultation bilaterally. ABDOMEN: Nontender, nondistended. Incision sites are clean, dry, and intact. EXTREMITIES: No cyanosis, clubbing or edema. PELVIC: Deferred. LABORATORY DATA: The patient's labs this morning show hemoglobin of 11.6, hematocrit of 36.8. Rest of labs are unremarkable. CONDITION ON DISCHARGE: Stable. OPERATIONS: Total laparoscopic hysterectomy with bilateral salpingectomy and cystoscopy. DISCHARGE DIAGNOSIS: Postoperative after the above procedures. PLAN ON DISCHARGE: The patient is discharged home with instructions regarding activity, diet, and [facility] ([place], [place]) appointment and medications. Job ID: [id number]
[2022-10-19] MEDS: DOCUSATE SODIUM 100 MG CAP PO SCH (11:13)
== END 2022-10-19 11:32 | disposition home or self-care (01) ==
LOC: ASU 06:39 → 4E1 06:39